=== PATIENT | male | born 1970 | race Caucasian/White ===

== ENCOUNTER 2023-01-31 13:00 | Emergency (ER) | payer OTHER ==
[2023-01-31 13:16] VITALS: RESP 18
[2023-01-31] MEDS ORDERED: ASPIRIN 81 MG PO STA (13:28)
--- NOTE | 2023-01-31 13:32 | ED ---
Chest Pain HPI - General Chief Complaint: Chest Pain Stated Complaint: Chest Pain Time Seen by Provider: 01/31/23 13:16 Source: patient, EMS Mode of arrival: EMS Limitations: no limitations - History of Present Illness Initial Comments: This patient is a 52-year-old man who arrives here to have evaluation of substernal chest pain that had started around 10 AM. The patient states that he was in a meeting at [facility]. He has been there approximately one week for alcohol rehab. Patient states that the symptoms lasted approximately half hour to 45 minutes and have subsequently resolved. The patient did not have any associated symptoms, no dyspnea, diaphoresis, nausea or vomiting, or other symptoms. The patient states he does not smoke. Quit 6 months ago. MD Complaint: chest pain Onset/Timin -: hour(s) Onset: during rest Pain Location: substernal Pain Radiation: none Severity: moderate Quality: tightness Consistency: now resolved Improves With: nothing Worsens With: nothing Treatments Prior to Arrival: none - Related Data Home Medications Medication Instructions Recorded Confirmed Acetaminophen Tab [Tylenol] 650 mg PO Q4H PRN 01/31/23 01/31/23 Brexpiprazole [Rexulti] 2 mg PO DAILY 01/31/23 01/31/23 Calcium Mag Zinc W/ D 1 tab PO TID PRN 01/31/23 01/31/23 Chlorpheniramine Maleate 4 mg PO Q4H PRN 01/31/23 01/31/23 [Chlor-Trimeton] Folic Acid 1 mg PO DAILY 01/31/23 01/31/23 Ibuprofen [Motrin] 800 mg PO Q8H PRN 01/31/23 01/31/23 [place] Carbonate 300 mg PO BID 01/31/23 01/31/23 Multivitamins, Thera [Multivitamin 1 tab PO DAILY 01/31/23 01/31/23 (formulary)] Sertraline [Zoloft] 100 mg PO BID 01/31/23 01/31/23 Thiamine [Vitamin B-1] 100 mg PO DAILY 01/31/23 01/31/23 ondansetron HCL [Zofran] 8 mg PO Q6H PRN 01/31/23 01/31/23 traZODone HCL [Desyrel] 100 mg PO HS 01/31/23 01/31/23 Previous Rx's Medication Instructions Recorded Azithromycin [Zithromax] 0 mg PO DIRECTED #6 tab 01/31/23 Allergies Allergy/AdvReac Type Severity Reaction Status Date / Time amoxicillin Allergy Unknown Verified 01/31/23 15:14 Review of Systems ROS Statement: Those systems with pertinent positive or pertinent negative responses have been documented in the HPI. ROS Other: All systems not noted in ROS Statement are negative. Constitutional: Denies: fever, chills Respiratory: Denies: cough, dyspnea Cardiovascular: Reports: as per HPI, chest pain. Denies: palpitations, dyspnea on exertion, edema, syncope Gastrointestinal: Denies: abdominal pain, nausea, vomiting Genitourinary: Denies: dysuria, hematuria Musculoskeletal: Denies: back pain Skin: Denies: rash Neurological: Denies: headache, weakness EKG Findings - EKG Results: EKG: interpreted by PRERNA, sinus rhythm, normal axis, normal QRS, normal ST/T EKG shows: bradycardia (Rate 55 bpm) Past Medical History Past Medical History: No Reported History History of Any Multi-Drug Resistant Organisms: None Reported Additional Past Surgical History / Comment(s): right compound fracture to tibia Past Psychological History: Anxiety, Bipolar, Depression Smoking Status: Former smoker Past Alcohol Use History: Abuse Past Drug Use History: None Reported General Exam Limitations: no limitations General appearance: alert, in no apparent distress Head exam: Present: atraumatic, normocephalic Eye exam: Present: normal appearance. Absent: scleral icterus, conjunctival injection Neck exam: Present: normal inspection Respiratory exam: Present: normal lung sounds bilaterally. Absent: respiratory distress, wheezes, rales, rhonchi, stridor Cardiovascular Exam: Present: regular rate, normal rhythm, normal heart sounds. Absent: systolic murmur, diastolic murmur, rubs, gallop GI/Abdominal exam: Present: soft. Absent: distended, tenderness, guarding, rebound, rigid, mass Extremities exam: Present: normal inspection, normal capillary refill. Absent: pedal edema, calf tenderness Back exam: Present: normal inspection. Absent: CVA tenderness (R), CVA tenderness (L) Neurological exam: Present: alert Skin exam: Present: warm, dry, intact, normal color. Absent: rash Course Vital Signs 07/19/23 07/19/23 07/19/23 13:13 13:42 14:57 Temperature 97.7 F Pulse Rate 60 63 70 Respiratory 18 18 18 Rate Blood Pressure 146/93 146/93 131/95 O2 Sat by Pulse 97 97 96 Oximetry 01/31/23 16:20 Temperature 98.2 F Pulse Rate 60 Respiratory 18 Rate Blood Pressure 127/87 O2 Sat by Pulse 98 Oximetry Chest Pain MDM - MDM The patient had a chest x-ray which I interpreted as showing possible left lower lobe infiltrate. No pneumothorax or congestive heart failure. Was pt. sent in by a medical professional or institution (, [facility], JAVA SYSTEMS ANALYST, urgent care, hospital, or usp...) When possible be specific @ -Sent by [facility] Did you speak to anyone other than the patient for history (EMS, parent, family, police, friend...)? What history was obtained from this source @ -[No] Did you review nursing and triage notes (agree or disagree)? Why? @ -[I reviewed and agree with nursing and triage notes] Were old charts reviewed (outside hosp., previous admission, EMS record, old EKG, old radiological studies, urgent care reports/EKG's, usp records)? Report findings @ -[No old charts were reviewed] Differential Diagnosis (chest pain, altered mental status, abdominal pain women, abdominal pain men, vaginal bleeding, weakness, fever, dyspnea, syncope, headache, dizziness, GI bleed, back pain, seizure, CVA, palpatations, mental health, musculoskeletal)? @ -Differential Chest Pain: Stable Angina, Unstable Angina, STEMI, NSTEMI Aortic Dissection, Pneumothorax, Musculoskeletal, Esophageal Spasm GERD, Cholecystitis, Pancreatitis, Zoster, this is not meant to be an all-inclusive list. EKG interpreted by me (3pts min.). @ -[As above] X-rays interpreted by me (1pt min.). @ -[As above CT interpreted by me (1pt min.). @ -[None done] U/S interpreted by me (1pt. min.). @ -[None done] What testing was considered but not performed or refused? (CT, X-rays, U/S, labs)? Why? @ -[None] What meds were considered but not given or refused? Why? @ -[None] Did you discuss the management of the patient with other professionals (professionals i.e. , PA, JAVA SYSTEMS ANALYST, lab, RT, psych nurse, delinquency prevention social worker, steam clean machine operator, teacher, correction officer head, welfare case worker)? Give summary @ -[No] Was smoking cessation discussed for >3mins.? @ -[No] Was critical care preformed (if so, how long)? @ -[No] Were there social determinants of health that impacted care today? How? (Homelessness, low income, unemployed, alcoholism, drug addiction, transportation, low edu. Level, literacy, decrease access to med. care, penitentiary, rehab)? @ -[No] Was there de-escalation of care discussed even if they declined (Discuss DNR or withdrawal of care, Hospice)? DNR status @ -[No] What co-morbidities impacted this encounter? (DM, HTN, Smoking, COPD, CAD, Cancer, CVA, ARF, Chemo, Hep., AIDS, mental health diagnosis, sleep apnea, morbid obesity)? @ -[None] Was patient admitted / discharged? Hospital course, mention meds given and route, prescriptions, significant lab abnormalities, going to OR and other pertinent info. @ -[The patient is evaluated for chest pain. His exam is benign and the workup unremarkable. Symptoms have resolved. The x-ray does reveal possible infiltrate on further questioning, patient does admit to having cough. He would like to go back to the rehabilitation Center and therefore will treat as outpatient for possible pneumonia. Return parameters are discussed and the patient will return if any chest symptoms recur Undiagnosed new problem with uncertain prognosis? @ -[No] Drug Therapy requiring intensive monitoring for toxicity (Heparin, Nitro, Insulin, Cardizem)? @ -[No] Were any procedures done? @ -[No] Diagnosis/symptom? @ -[Acute chest pain Acute pneumonia Acute, or Chronic, or Acute on Chronic? @ -[default] Uncomplicated (without systemic symptoms) or Complicated (systemic symptoms)? @ -[Uncomplicated Side effects of treatment? @ -[No] Exacerbation, Progression, or Severe Exacerbation? @ -[No] Poses a threat to life or bodily function? How? (Chest pain, [place], MS, pneumonia, PE, COPD, DKA, ARF, appy, cholecystitis, CVA, Diverticulitis, Homicidal, Suicidal, threat to staff... and all critical care pts) @ -[No] Disposition Clinical Impression: Chest pain, Pneumonia Disposition: HOME SELF-CARE Condition: Good Instructions (If sedation given, give patient instructions): Chest Pain (ED), Pneumonia (ED) Prescriptions: Azithromycin [Zithromax] 0 mg PO DIRECTED #6 tab Is patient prescribed a controlled substance at d/c from ED?: No Referrals: CLAY NATH MD [Primary Care Provider] - 1-2 days
[2023-01-31 13:50] LABS: Basophils % (A) 0 %; Eosinophils # (A) 0.2 k/uL (0-0.7); Eosinophils % (A) 2 %; HCT 42.8 % (39.0-53.0); HGB 13.8 gm/dL (13.0-17.5); Lymphocytes # (A) 1.2 k/uL (1.0-4.8); Lymphocytes % (A) 14 %; MCH 29.3 pg (25.0-35.0); MCHC 32.2 g/dL (31.0-37.0); MCV 90.8 fL (80.0-100.0); Mean Platelet Volume 6.9; Monocytes # (A) 0.7 k/uL (0-1.0); Monocytes % (A) 8 %; Neutrophils # (A) 6.2 k/uL (1.3-7.7); Neutrophils % (A) 74 %; Platelet Count 290 k/uL (150-450); RBC 4.72 m/uL (4.30-5.90); RDW 14.1 % (11.5-15.5); WBC 8.4 k/uL (3.8-10.6)
[2023-01-31 14:03] LABS: ALT 85 U/L (4-49); AST 51 U/L (17-59); African American GFR (CKD) >90 (>60 ml/min/1.73 sqM); Albumin 4.6 g/dL (3.5-5.0); Alkaline Phosphatase 88 U/L (38-126); Amylase 137 U/L (30-110); Anion Gap 7 mmol/L; Blood Urea Nitrogen 15 mg/dL (9-20); Calcium 9.8 mg/dL (8.4-10.2); Carbon Dioxide 26 mmol/L (22-30); Chloride 99 mmol/L (98-107); Glucose 99 mg/dL (74-99); Lipase 112 U/L (23-300); Magnesium 2.5 mg/dL (1.6-2.3); Non-African American GFR(CKD) >90 (>60 ml/min/1.73 sqM); Potassium 5.3 mmol/L (3.5-5.1); Prothrombin Time 10.5 sec (9.0-12.0); Sodium 132 mmol/L (137-145); Total Bilirubin 0.6 mg/dL (0.2-1.3); Total Protein 7.6 g/dL (6.3-8.2)
--- NOTE | 2023-01-31 14:46 | XR ---
EXAMINATION TYPE: XR chest 2V DATE OF EXAM: 01/31/2023 2:07 PM COMPARISON: None TECHNIQUE: XR chest 2V Frontal and lateral views of the chest. CLINICAL INDICATION:Male, 52 years old with history of Chest Pain; FINDINGS: Lungs/Pleura: Left lower lung airspace opacities. There is flattening of the diaphragm with increased lucency of the lungs. No evidence of pneumothorax, pleural effusion or focal consolidation. Pulmonary vascularity: Unremarkable. Heart/mediastinum: Cardiomediastinal silhouette is unremarkable. Musculoskeletal: No acute osseous pathology. Other findings: None Lines/Tubes: IMPRESSION: 1. Left lower lung airspace opacities correlate for pneumonia. 2. COPD changes.
[2023-01-31] MEDS ORDERED: AZITHROMYCIN 500 MG TAB PO STA (16:05)
[2023-01-31] MEDS ORDERED: cefTRIAXone IN SWFI 1,000 MG/10 ML SYRINGE IVP STA (16:05)
[2023-01-31 16:22] VITALS: BP 127/87; PULSE 60; TEMP 98.2
== END 2023-01-31 16:30 | disposition home or self-care (01) ==
LOC: SUPCPDRO 13:00 → EC 13:00
DX: J18.9 Pneumonia, unspecified organism (principal); F31.9 Bipolar disorder, unspecified; F41.9 Anxiety disorder, unspecified; Z79.899 Other long term (current) drug therapy; Z87.891 Personal history of nicotine dependence; Z88.0 Allergy status to penicillin
CPT/HCPCS: 36415; 93005; 80053; 82150; 83690; 83735; 84484; 85025; 85610; 85730; 71046; 99285; 96374; J0696